=== PATIENT | male | born 1980 | race Caucasian/White ===

== ENCOUNTER 2024-02-08 12:02 | Emergency (ER) | payer OTHER, SELFPAY ==
[2024-02-08 12:09] VITALS: BP 158/98; PULSE 68; RESP 18; TEMP 36.6; O2SAT 99; BMI 24.7
--- NOTE | 2024-02-08 12:09 | ED_ITS ---
HPI - General Adult General Chief complaint: General Medical Stated complaint: Bat exposure Time Seen by Provider: 02/08/24 12:14 Source: patient Mode of arrival: ambulatory Limitations: no limitations History of Present Illness ED Provider: Patt Corcoran PA-C HPI narrative: Patient is a 43 year old assigned male at with a history of anxiety presenting to the emergency department today requesting rabies prophylaxis after bat exposure. Patient states that 1 week ago his cat caught a bat in their house and he does not know how long he was exposed to it before the cat caught the b at. Patient denies any dizziness, lightheadedness, abdominal pain, nausea, vomiting, fever, chills, blurry vision, double vision, loss of vision, chest pain, difficulty breathing, shortness of breath, back pain, night sweats, pain with urination, increased urinary frequency, increased urinary urgency, blood in his urine or stool, syncope or a near syncopal episode, recent trauma or falls, bowel incontinence, bladder incontinence, or any other complaints at this time. Relieving factors: none Exacerbating factors: none Associated symptoms: denies other symptoms Treatments prior to arrival: none Related Data Allergies Allergy/AdvReac Type Severity Reaction Status Date / Time No Known Allergies Allergy Verified 02/08/24 12:11 [No Known Allergies*] Review of Systems Constitutional: Constitutional: Reports no additional constitutional complaints, Denies chills, Denies fever(s) and Denies night sweats Eyes: Eyes: Reports no additional eye complaints, Denies blurry vision, Denies change in vision, Denies diplopia, Denies eye discharge, Denies loss of vision and Denies eye pain ENT: Denies dizziness Cardiovascular: Cardiovascular: Reports no additional cardiovascular complaints, Denies chest pain, Denies lightheadedness, Denies Loss of Consciousness and Denies dyspnea Respiratory: Respiratory: Reports no additional respiratory complaints and Denies dyspnea Gastrointestinal: Gastrointestinal: Reports no additional gastrointestinal complaints, Denies abdominal pain, Denies melena, Denies hematochezia, Denies change in bowel habits and Denies change in stool character Genitourinary: Genitourinary: Reports no additional male genitourinary complaints, Denies hematuria, Denies oliguria, Denies difficulty urinating, Denies dysuria, Denies urinary frequency, Denies urinary hesitancy, Denies urinary incontinence and Denies urinary urgency Musculoskeletal: Musculoskeletal: Reports no additional musculoskeletal complaints, Denies numbness and Denies tingling Neurologic: Denies dizziness, Denies loss of vision, Denies numbness and Denies tingling Psychiatric: Psychiatric: Reports no additional psychiatric complaints Endocrine: Endocrine: Reports no additional endocrine complaints Hematologic/Lymphatic: Hematologic/Lymphatic: Reports no additional hematologic/lymphatic complaints Allergic/Immunologic: Allergic/Immunologic: Reports no additional allergic/immunologic complaints FORMERLY [facility], 1928–1983 Past Medical History Attestation statement: The following information was validated with the patient. Source: old records reviewed and nursing notes reviewed Social History Social History Advance Directives: No Advance Directives Information Provided: No Do you have a plan to hurt others: No Plan Physical Exam ED Vital Signs: Vital Signs - 24 hr 02/08/24 12:09 Temperature 98 F Pulse Rate 68 Respiratory Rate 18 Blood Pressure 158/98 H Pulse Oximetry 99 Oxygen Delivery Method Room Air BMI result Body Mass Index 24.7 Const General: cooperative, no acute distress, alert and awake Nutritional Appearance: well nourished Orientation/consciousness: patient oriented x3 Limitations: no limitations HENMT Head: Yes normal to inspection and Yes atraumatic Ears: hearing grossly normal bilaterally and external ears normal General nose exam: Normal external nose present, no nasal discharge noted and no epistaxis Face and sinus: Yes normal facial exam, No abrasion and No laceration Mouth: Normal oral and palatal mucosa present, no drooling and no muffled voice Eyes General: appearance normal, both eyes and all related structures Periorbital: periorbital findings normal Eyelids: Yes eyelids normal Conjunctivae: conjunctivae normal Pupils: Equal, round and reactive pupils present EOM: EOMs intact bilaterally Neck Neck: Yes normal visual inspection, Yes full ROM and Yes no lymphadenopathy Chest Chest palpation & inspection: normal inspection of the chest Resp Effort & Inspection: normal respiratory effort and able to speak in complete sentences GI Inspection: Yes normal to inspection Neuro General: patient oriented x3 and moves all extremities Cranial nerves: Yes Equal, round and reactive pupils present Cognition (Neuro): normal cognition Extrem General: Yes normal to inspection, Yes full ROM and Yes capillary refill normal Psych Appearance: grossly normal Mental Status: mental status grossly normal Affect: normal affect Attitude: cooperative Thought process: Normal thought process present Thought content: Normal thought content present Insight: Good insight present (Psych) Course Course Course Narrative: This is an RME done by [facility]: Additional HPI, ROS, PE not included below will be deferred to primary provider. 43 year old male presenting with concerns of bat exposure 1 week ago and also 1 month ago. He denies any visible wounds from the bat, but has concerns of potential rabies. Appearance: Alert.? Oriented X3.? No acute cardiopulmonary distress distress.? Head: Normocephalic, atraumatic, no step-offs or deformities Neck: Normal inspection.? Neck supple.? CVS: Pulses normal.? Respiratory: No respiratory distress.? Abdomen: Soft and nontender.? Skin: ? Normal skin color. Extremities: 5/5 strength to bilateral upper and lower extremities Neuro: Oriented X 3.? No motor deficit.? No sensory deficit. Medical Decision Making Medical Decision Making MDM Narrative: Patient is a 43 year old assigned male at with a history of anxiety presenting to the emergency department today for rabies prophylaxis after bat exposure. Patient's physical exam was unremarkable. I explained my physical exam findings to the patient. I answered all questions asked by the patient. According to the CDC, because the patient was exposed to a bat for an unknown length of time without prior Rabies vaccination, he must received both the vaccination and the immuglobulin. I stressed the importance of the patient taking his medication as directed (either prescribed or as the over the counter packaging recommends). I stressed the importance of the patient following up with his primary care provider and the infusion center for the remainder of his vaccine shots. I stressed the importance of the patient returning to the emergency department immediately if his symptoms were to worsen or if he were to develop any dizziness, shortness of breath, difficulty breathing, chest pain, blurry vision, loss of vision, nausea, vomiting, abdominal pain, fever, chills, back pain, or any other complaints. Patient verbalized agreement and understanding with this treatment plan and discharge. Differential Diagnosis Differential Diagnoses: The differential diagnosis associated with the presentation includes Rabies exposure Bat exposure Rabies prophylaxis Admission/Observation Consideration of admission/observation: Escalation of care including admission/observation considered Patient would have been admitted to the hospital had his clinical presentation warranted hospital admission. Discharge Plan Discharge Clinical Impression: Rabies exposure, Exposure to bat without known bite Patient Disposition: Home, Self-Care Instructions: Rabies (ED), Rabies Immune Globulin (By injection), Rabies Vaccine (By injection) Additional Instructions: Follow up with your primary care provider. Return to the emergency department immediately if your symptoms worsen or if you develop any dizziness, shortness of breath, difficulty breathing, chest pain, blurry vision, loss of vision, nausea, vomiting, abdominal pain, fever, chills, back pain, or any other complaints. You should get a call from the Infusion Center to schedule an appointment to receive the remainder of your required Rabies Vaccines. You will need a total of 3 more injections. If for some reason you do not receive a call from the infusion center - please call them at [phone]. Follow up with your primary care provider after completion of the vaccine to have a titer drawn to ensure the vaccines effectiveness. Referrals: Marlene Jones MD [Primary Care Provider] - Stand Alone Forms: Work/School Release Print Language: Azeri
[2024-02-08] MEDS: Rabies Vaccine, Human Diploid (Imovax) 1 ML VIAL IM (12:49)
[2024-02-08] MEDS: Rabies Immune Globulin/PF 900 UNIT/3 ML VIAL 1610 UNIT IM (12:50)
--- NOTE | 2024-02-08 13:31 | PC.NURSE ---
Pt reports he has had exposure to bat X2 in last month in his house, no known scratch or bite. Pt anxious the bat may have come into contact with him at some point. Pt medicated per MAR, given all the d/c instructions, education and follow-ups. Pt also given the infusion center #. No reactions noted after IM injections.
[2024-02-08 13:37] VITALS: BP 158/98; PULSE 68; RESP 18; TEMP 36.6; O2SAT 99
--- NOTE | 2024-02-08 13:40 | PC.NURSE ---
Bite reporting form completed and sent to appropriate town via fax
== END 2024-02-08 13:41 | disposition home or self-care (01) ==
PROVIDERS: Emergency Provider Emergency Medicine Emergency Medical Services; PCP Internal Medicine
DX: Z20.3 Contact with and (suspected) exposure to rabies (principal); Z23 Encounter for immunization
CPT/HCPCS: 90375; 90471; 90675; 96372; 99282; 99284

== ENCOUNTER 2024-02-22 12:45 | Outpatient (RCR) | payer OTHER, SELFPAY ==
[2024-02-10 08:36] VITALS: BP 136/78; PULSE 79; RESP 18; TEMP 37.2; O2SAT 99
[2024-02-10] MEDS: Rabies Vaccine, Human Diploid (Imovax) 1 ML VIAL IM (08:42)
[2024-02-15 12:47] VITALS: BP 123/81; PULSE 61; RESP 16; TEMP 37; O2SAT 98
[2024-02-15] MEDS: Rabies Vaccine, Human Diploid (Imovax) 1 ML VIAL IM (12:48)
[2024-02-22 12:38] VITALS: BP 133/75; PULSE 87; RESP 16; TEMP 36.6; O2SAT 99
[2024-02-22] MEDS: Rabies Vaccine, Human Diploid (Imovax) 1 ML VIAL IM (12:40)
== END 2024-02-22 13:43 | disposition home or self-care (01) ==
LOC: HO.INF 12:45
PROVIDERS: Visit Provider Physician Assistant Medical
DX: Z20.3 Contact with and (suspected) exposure to rabies (principal)
CPT/HCPCS: 90471; 90675